=== PATIENT | female | born 1970 | race Caucasian/White ===

== ENCOUNTER 2024-08-11 14:40 | Outpatient (AMB) | payer OTHER, SELFPAY ==
--- NOTE | 2024-08-11 14:44 | A.OFFVIS_ITS ---
Vital Signs 08/11/24 14:46 Height 5 ft 5 in Weight 308 lb BMI 51.2 BP 128/78 Blood Pressure Location Lt brachial Position Sitting Pulse 61 Pulse Source Pulse Oximeter Pulse Oximetry (%) 100 Oxygen Delivery Method Room Air Intake Visit Reasons: ENP-SHIMON Intake Note: Patient presents for SHIMON Allergies shrimp Allergy (Verified 08/11/24 14:47) Unknown HPI Comments Details: 54 year old female is here for a sleep evaluation per PCP Dr. Cabezas in [place]. She bites her R. lower lip edge and will have and will have a fuzzy numb feeling on the lower left for about 3 months now, kind of like nerve irritation, not painful but annoying sensation. She uses her CPAP daily at night and sleeps about 5-6 hours a night, she used to average a solid 7-8 in the past. She is more tired during the day and she wakes up she is slow to awake, then lags all day. She tosses and turns all night long trying to fall asleep. Denies caffeine, no sodas. Denies taking melatonin, Denies Alcohol, smoking or MJ use. RLS : Has to move her legs in the chair when sitting down at the end of the day, they feel achy. Denies numbness, tingling,cramps or spasms, doesn't feel the need to move her legs in bed. Her diet is good, she eats really well just not successful at limiting items, an d doesn't hydrate well. LShe is motivated to lose weight and would like to speak with weight management. 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 Afib, she takes a baby aspirin daily and follows up with Optical Laboratory Technician at [facility] - [facility] - complete cardiac workup. COUNTS INCLUDE 234 BEDS AT [facility] Medical History Headache Arthritis A-fib Hypothyroidism Hypertension Surgical History Hx laparoscopic cholecystectomy Family History Paternal Grandmother Breast cancer Paternal Grandfather Lung cancer Mother Anxiety and depression Maternal Grandmother Cancer Father Arthritis Social History Alcohol intake: never Patient Tobacco Use Status: Never used Tobacco Physical Exam Vital Signs: Last Vital Signs Pulse 61 08/11/24 14:46 BP 128/78 08/11/24 14:46 Pulse Ox 100 08/11/24 14:46 Oxygen Delivery Method Room Air 08/11/24 14:46 BMI result Body Mass Index 51.2 Assessment & Plan Assessment & Plan (1) Fatigue due to sleep pattern disturbance: Code(s): R53.83 - Other fatigue; G47.9 - Sleep disorder, unspecified Category: Medical (2) Loud snoring: Code(s): R06.83 - Snoring Category: Medical (3) Gasping for breath: Code(s): R06.89 - Other abnormalities of breathing Category: Medical (4) Obesity (BMI 30-39.9): Code(s): E66.9 - Obesity, unspecified Category: Medical Plan Snoring and daytime fatigue will evaluate her with HST BMI is elevated 51, referral to weight management. Daytime Fatigue will R/O deficiencies with Labs: CBC / CMP B12/ Vit D/Folate Homocysteine and MMA Request notes from [place] for Labs, [facility] cardiology notes and [facility] [place] for sleep. F/u in 3 months Orders: Orders Vitamin D 25-OH Total Today G47.9 - Sleep disorder, unspecified, R53.83 - Other fatigue Methylmalonic Acid Today G47.9 - Sleep disorder, unspecified, R53.83 - Other fatigue Complete Blood Count no Diff Today G47.9 - Sleep disorder, unspecified, R53.83 - Other fatigue Hemoglobin A1c Today G47.9 - Sleep disorder, unspecified, R53.83 - Other fatigue RT home sleep study Today E66.9 - Obesity, unspecified, G47.9 - Sleep disorder, unspecified, R06.83 - Snoring, R06.89 - Other abnormalities of breathing, R53.83 - Other fatigue Vitamin B12 and Folate Today G47.9 - Sleep disorder, unspecified, R53.83 - Other fatigue Homocysteine Today G47.9 - Sleep disorder, unspecified, R53.83 - Other fatigue Comprehensive Met. Panel Today G47.9 - Sleep disorder, unspecified, R53.83 - Other fatigue Referrals Medical Weight Management Referral E66.01 - Morbid (severe) obesity due to excess calories Coding Level of Care Code New Pt Level 4 (03642) Diagnoses Fatigue due to sleep pattern disturbance R53.83; G47.9 Loud snoring R06.83 Gasping for breath R06.89 Obesity (BMI 30-39.9) E66.9 Time Spent (min) 30 Comment Evaluation Sleep Questionnaire Difficulty falling asleep: No Difficulty staying asleep?: No Number of arousals: 0 Snoring: Yes (before cpap) Witnessed apneas: No Gasping arousals: Yes Nocturia: No GERD: Yes Vivid dreams: Yes Acting out dreams: No Abnormal behavior in sleep: No Abnormal movements in sleep: No Morning headaches: Yes Excessive daytime sleepiness: Yes Daytime naps: No Restless legs: No Hallucinations: No Sleep paralysis: No Drop attacks: No Sleep Study: Yes (Kelsey ) CPAP: Yes
--- OUTSIDE RECORDS SUMMARY | 2024-08-11 14:44 | XMS_ITS | Clinical Summary ---
Author Organization [facility] Address [address] [place] [address] Phone Care Team Providers Care Diploma Pharmacy Technician Name Role Phone Heriberto Cabezas MD Primary Care Provider [phone] Allergies Active Allergy Reactions Criticality Noted Date Comments Other 12/26/2013 Seasonal-Other Reaction(s): Runny Nose/Rhinitis Watery eyes Shrimp 08/13/2021 Tingling of the tongue Medications Medication Sig Dispensed Refills Start Date End Date Status tiZANidine (ZANAFLEX) 4 mg tablet Take 1 tablet (4 mg total) by mouth every 8 (eight) hours if needed. 01/26/2024 Active multivit-min/iron/f olic acid/K (ADULTS MULTIVITAMIN ORAL) Take by mouth. Active cetirizine HCl (ZYRTEC ORAL) Take by mouth. Active losartan (Cozaar) 25 mg tablet Take 1 tablet (25 mg total) by mouth 1 (one) time each day. 90 each 1 05/23/2024 11/19/2024 Active metoprolol succinate (TOPROL-XL) 50 mg 24 hr tablet Take 1 tablet (50 mg total) by mouth 1 (one) time each day. 90 tablet 1 06/27/2024 Active levothyroxine (SYNTHROID, LEVOTHROID) 25 mcg tablet Take 1 tablet (25 mcg total) by mouth 1 (one) time each day. 90 tablet 08/01/2024 Active terbinafine (LamISIL) 250 mg tablet Take 1 tablet (250 mg total) by mouth 1 (one) time each day. Active levothyroxine (SYNTHROID, LEVOTHROID) 25 mcg tablet Take 1 tablet (25 mcg total) by mouth 1 (one) time each day. 01/26/2024 07/31/2024 Discontinued (Reorder) Encounters Date Type Department Care Team Description 06/27/2024 Telephone Adult Medicine [facility] [address] [place] [address] Heriberto Cabezas MD 05/23/2024 9:45 AM EST Office Visit Adult Medicine [facility] [address] [place] [address] Archana Lau PA Primary hypertension (Primary Dx); Acquired hypothyroidism; Hypercholesterolemia; Encounter for screening mammogram for malignant neoplasm of breast from Last 3 Months Immunizations Name Administration Dates Next Due Influenza trivalent, 0.5mL, preservative free (Fluarix; FluLaval; Fluzone) ages 6mo and older (Afluria) 3 years and older 05/08/2021,03/16/2013,04/29/2011,04/03 Influenza trivalent, MDCK, 0 .5mL, preservative free (Flucelvax) 6mo and older 05/23/2024 Influenza, Unspecified 04/11/2014 MMR, measles mumps and rubel la Live (Priorix; M-M-R II) 12mo and older 10/07/2020 Meningococcal MCV4P 02/28/2008 PPD Test 03/25/2011,01/13/2010,02/28/2008 Td Tetanus diptheria (Tdvax) 7yo and older 08/19/2018 Tdap Tetanus diptheria acell ular pertussis (Boostrix; Adacel) 7yo and older 02/28/2008 Surgical History Surgery Date Site/Laterality Comments WISDOM TOOTH EXTRACTION 2007 PROCEDURE: HISTORICAL WISDOM TEETH EXTRACTION; COMMENT: no complications with anesthesia /bleeding Medical History Medical History Date Comments Anemia, unspecified DX:Anemia, u nspecified Itch 11/13/2009 DX:Itch Flank pain 04/29/2010 DX:Flank pain; C OMMENT: [facility] Urology Paroxysmal atrial fibrillati on (CMS/HCC) 12/23/2015 DX:Paroxysmal atrial fibrill ation (HCC) Family History Medical History Relation Name Comments Arthritis Father shoulder, back Other cancer Maternal Grandmother unsure, ? leukemia Mental illness Mother anxiety/depre ssion Lung cancer Paternal Grandfather Breast cancer Paternal Grandmother Other: tachycardia Sister 1 s Breast cancer Neg Hx Relation Name Status Comments Brother Alive Father Alive Maternal Grandfather Alive Maternal Grandmother Mother Alive Paternal Grandfather Paternal Grandmother Sister 1 Sister 2 Alive Son 1 Alive Son 2 Alive Social History Tobacco Use Types Packs/Day Years Used Date Smoking Tobacco: Never Smokeless Tobacco: Never Alcohol Use Standard Drinks/Week Comments Yes 0 (1 standard drink = 0.6 oz pur e alcohol) Sex and Gender Information Value Date Recorded Sex Assigned at Not on file Gender Identity Not on file Sexual Orientation Not on file Job Start Date Occupation Industry Not on file Not on file Not on file Obstetrics History Last Filed Vital Signs Vital Sign Reading Time Taken Comments Blood Pressure 139/78 05/23/2024 9:41 AM EST Pulse 62 05/23/2024 9:41 AM EST Temperature 36.8 ??C (98.2 ??F) 05/23/2024 9:41 AM ES T Respiratory Rate - - Oxygen Saturation - - Inhaled Oxygen Concentration - - Weight 139 kg (306 lb) 05/23/2024 9:41 AM EST Height 165.1 cm (5' 5 ) 05/23/2024 9:41 AM EST Body Mass Index 50.92 05/23/2024 9:41 AM EST Plan of Treatment Health Maintenance Due Date Last Done Comments Breast Cancer Screening 1972 Hepatitis B Vaccines (1 of 3 - 19+ 3-dose series) 01/28/1991 Cervical Cancer Screening: Pap Smear 12/26/2016 12/26/2013, 12/26/2013 Zoster Vaccines (1 of 2) 01/28/2022 Depression Screening 06/20/2022 Social Influencers of Health Screening 06/20/2022 COVID-19 Vaccine (2023- season) 2024 09/20/2020, 08/23/2020 Hypertension/CHF/CAD Annual BMP Blood Test 01/27/2025 01/28/2024, 01/28/2024 DTaP,Tdap,and Td Vaccines (3 - Td or Tdap) 08/19/2028 08/19/2018, 02/28/2008 Cholesterol Screening (Lipid Panel) 01/27/2029 01/28/2024, 01/28/2024 Colorectal Cancer Screening: Colonoscopy 07/28/2033 07/28/2023 Meningococcal ACWY Vaccine Aged Out 02/28/2008 N o longer eligible based on patient's age to complete this topic HIV Screening Completed 09/09/2016 Hepatitis C Screening Completed 09/09/2016 MMR Vaccines Aged Out 10/07/2020 No longer eligi ble based on patient's age to complete this topic Influenza Vaccine Completed 05/23/2024, , 05/08/2021, Additional history exists HIB Vaccines Aged Out No longer eligi ble based on patient's age to complete this topic HPV Vaccines Aged Out No longer eligi ble based on patient's age to complete this topic Hepatitis A Vaccines Aged Out No long er eligible based on patient's age to complete this topic IPV Vaccines Aged Out No longer eligi ble based on patient's age to complete this topic Pneumococcal Vaccine: Pediatrics (0 to 5 Years) and At-Risk Patients (6 to 64 Years) Aged Out No longer eligible based on patient's age to complete this topic RSV Immunization Patients Under 20 months Aged Out No longer eligible based on patient's age to complete this topic Varicella Vaccines Aged Out No longer eligible based on patient's age to complete this topic Procedures Procedure Name Priority Date/Time Associated Diagnosis Comments ANNUAL BMP BLOOD TEST Routine 01/28/2024 LIPID PANEL Routine 01/28/2024 COLONOSCOPY Routine 07/28/2023 HEPATITIS C SCREENING Routine 09/09/2016 HIV SCREENING Routine 09/09/2016 HPV Routine 12/26/2013 from Last 3 Months or Most Recently Relevant to Health Maintenance Results * Annual BMP Blood Test (01/28/2024) Annual BMP Blood Test abstracted Historical Provider MD IZA MCKEON E * Lipid panel (01/28/2024) [facility] LDL/HDL Ratio 3 0 - 4 Triglycerides 85 0 - 150 mg/dL Cholesterol 152 0 - 200 mg/dL HDL 56 40 mg/dL LDL Cholesterol 79 0 - 100 mg/dL Blood Venous blood specimen / Unknown Historical Provider LAB BLOOD ORDERAB LES * Colonoscopy (07/28/2023) [facility] Colonoscopy no interpretation , abstracted Anatomical Region Laterality Modality Other Historical Provider [facility] * HIV Screening (09/09/2016) [facility] HIV Screening abstracted Historical Provider [facility] * Hepatitis C Screening (09/09/2016) [facility] Hepatitis C Screening abstracted Historical Provider [facility] * Cervical Cancer Screening: HPV (12/26/2013) [facility] Cervical Cancer Screening: HPV negative, abstracted Historical Provider [facility] from Last 3 Months or Most Recently Relevant to Health Maintenance Care Teams Diploma Pharmacy Technician Relationship Specialty Start Date End Date Heriberto Cabezas MD [address] [place] [address] NANDO Villagmoez [id number] PCP - General Internal Medicine 12/24/20
--- OUTSIDE RECORDS SUMMARY | 2024-08-11 14:44 | XMS_ITS | Encounter Summary ---
Author Organization [facility] Address [address] [place] [address] Care Team Providers Care Proofer Black And White Name Role Phone Heriberto Cabezas MD Primary Care Provider [phone] Encounter Details Date Type Department Care Team ([facility] st Contact Info) Description 06/27/2024 Telephone Adult Medicine [facility] [address] [facility] [place] [id number] Heriberto Cabezas MD [address] [place] [address] Social History Tobacco Use Types Packs/Day Years [...] file Not on file Not on file documented as of this encounter Plan of Treatment Not on file documented as of this encounter Visit Diagnoses Not on filedocumented in this encounter Care Teams Proofer Black And White Relationship Specialty Start Date End Date Heriberto Cabezas MD [address] [place] [address] PCP - General Internal Medicine 12/24/20 documented as of this encounter
[2024-08-11 14:46] VITALS: BP 128/78; PULSE 61; O2SAT 100; BMI 51.2
== END 2024-08-11 15:31 | disposition home or self-care (01) ==
PROVIDERS: Visit Provider Physician Assistant Medical
DX: R53.83 Other fatigue (principal); G47.9 Sleep disorder, unspecified; R06.83 Snoring; R06.89 Other abnormalities of breathing; E66.9 Obesity, unspecified
CPT/HCPCS: 99204

== ENCOUNTER → 2024-10-18 14:58 | Outpatient (REF) | payer OTHER, SELFPAY ==
--- OUTSIDE RECORDS SUMMARY | 2024-10-18 17:09 | XMS_ITS | Clinical Summary ---
Author Organization [facility] Address [address] [place] [address] Phone Care Team Providers Care Felt Finisher Name Role Phone Heriberto Cabezas MD Primary Care Provider [phone] Allergies Active Allergy Reactions Criticality Noted Date Comments Other 12/26/2013 Seasonal-Other Reaction(s): Runny Nose/Rhinitis Watery eyes Shrimp 08/13/2021 Tingling of the tongue Medications tiZANidine (ZANAFLEX) 4 mg tablet Take 1 tablet (4 mg total) by mouth every 8 (eight) hours if needed. 01/26/2024 Active multivit-min/iron /folic acid/K (ADULTS MULTIVITAMIN ORAL) Take by mouth. Active cetirizine HCl (ZYRTEC ORAL) Take by mouth. Active losartan (Cozaar) 25 mg tablet Take 1 tablet (25 mg total) by mouth 1 (one) time each day. 90 each 1 05/23/2024 11/20/19 25 Active metoprolol succinate (TOPROL-XL) 50 mg 24 [...] mouth 1 (one) time each day. Active Immunizations Name Administration Dates Next Due Influenza [...] Flank pain 04/29/2010 DX:Flank pain; C OMMENT: [facility] Urology Paroxysmal atrial fibrillati on ([facility]/HCC) 12/23/2015 DX:Paroxysmal atrial fibrill ation (HCC) Family [...] drink = 0.6 oz pur e alcohol) Comments No Sex and Gender Information Value Date Recorded Sex Assigned at Not on file Legal Sex Female 11:59 PM EST Gender Identity Not on file Sexual Orientation Not on file Obstetrics History Last Filed [...] Cancer Screening: Pap Smear 12/26/2016 12/26/2013, 12/26/2013 Pneumococcal Vaccine: 50+ Years (1 of 1 - PCV) 01/28/2022 Zoster Vaccines (1 of 2) 01/28/2022 Depression Screening 06/20/2022 Social Influencers of Health Screening 06/20/2022 COVID-19 Vaccine ( season) 2024 09/20/2020, 08/23/2020 Hypertension/CHF/CAD Annual BMP [...] on patient's age to complete this topic Meningococcal B Vaccine Aged Out No l onger eligible based on patient's age to complete [...] Annual BMP Blood Test abstracted Historical Provider HEALTH MAINTENANCE Final Result * Lipid panel (01/28/2024) LDL/HDL Ratio 3 0 - 4 Triglycerides 85 0 - 150 mg/dL Cholesterol 152 0 - 200 mg/dL HDL 56 >=40 mg/dL LDL Cholesterol 79 0 - 100 mg/dL Blood Venous blood specimen / Unknown us Historical Provider LAB BLOOD ORDERABLES Denisha l Result * Colonoscopy (07/28/2023) Pathologist [facility] Colonoscopy no interpretation , abstracted Anatomical Region Laterality Modality Other Historical Provider HEALTH MAINTENANCE Final Result * HIV Screening (09/09/2016) [facility] HIV Screening abstracted [facility] Provider HEALTH MAINTENANCE Final Result * Hepatitis C Screening (09/09/2016) Pathologist [facility] Hepatitis C Screening abstracted [facility] Provider HEALTH MAINTENANCE Final Result * Cervical Cancer Screening: HPV (12/26/2013) Pathologist [facility] Cervical Cancer Screening: HPV negative, abstracted [facility] Provider HEALTH MAINTENANCE Final Result from Last 3 Months or Most Recently Relevant to Health Maintenance Insurance [employer] [facility] Care Teams Felt Finisher Relationship Specialty Start Date End Date Heriberto Cabezas MD [address] [place] [id number] PCP - General Internal Medicine 12/24/20
== END ==
LOC: HO.SL 14:58
PROVIDERS: PCP Pediatrics; Visit Provider Physician Assistant Medical
DX: G47.33 Obstructive sleep apnea (adult) (pediatric) (principal); R53.83 Other fatigue; R06.83 Snoring; R06.89 Other abnormalities of breathing; E66.9 Obesity, unspecified
CPT/HCPCS: 95806

== ENCOUNTER → 2024-10-18 15:37 | Outpatient (BNV) | payer OTHER, SELFPAY | PROVIDERS: PCP Pediatrics; Visit Provider Psychiatry & Neurology Neurology | DX: G47.33 Obstructive sleep apnea (adult) (pediatric) (principal) | CPT/HCPCS: 95806 ==

== ENCOUNTER 2024-11-08 14:25 | Outpatient (AMB) | payer OTHER, SELFPAY ==
--- NOTE | 2024-11-08 14:30 | MHC.OFFVIS ---
Vital Signs 11/08/24 14:31 Height 5 ft 5 in Weight 316 lb BMI 52.6 BP 126/72 Blood Pressure Location Lt brachial Position Sitting Pulse 70 Pulse Source Pulse Oximeter Pulse Oximetry (%) 99 Oxygen Delivery Method Room Air Intake Visit Reasons: Follow up 3mo, SHIMON (obstructive sleep apnea) Intake Note: Patient presents follow up sleep. HST in chart(AHI 25/hr, JOSH 86%. Trial AutoPAP 5/20cm) WM seen 08/31/24. No labs. Allergies Seasonal Allergies Allergy (Mild, Verified 11/08/24 14:35) Runny Nose shrimp Allergy (Verified 11/08/24 14:35) Unknown HPI Comments Details: 54 year old female is here for SHIMON per PCP Dr. Cabezas in [place]. HST c/w SHIMON AHI 25/hr and oxygen Nadirs to 86%. She uses her CPAP daily at night and sleeps about 5-6 hours a night, she used to average a solid 7-8 in the past. She is more tired now and notices her heart racing, she had a holter monitor test, and PACs were noted, however she was in NSR, and is being followed by her offshoring manager. She says her labs are normal and she takes her Levothyroxine daily. She tosses and turns all night long trying to fall asleep. Denies headaches, denies using caffeine, drinking sodas or use of stimulants. Denies Alcohol, smoking, vaping or MJ use. RLS : Has to move her legs in the chair when sitting down at the end of the day, they feel uncomfortable. Magnesium 400mg daily has improved the discomfort in legs at night. Today she denies numbness, tingling, cramps or spasms, doesn't feel the need to move her legs at night. 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 She is motivated to lose weight and Ozempic was not approved by insurance. 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 She says she still feels the arrythmias come and go, and it is worse when she is dehydrated. She takes a baby aspirin daily. She washes her mask, changes the filters and hoses as needed and fills the reservoir with water. [facility] Medical History Headache Arthritis A-fib Hypothyroidism Hypertension Surgical History Hx laparoscopic cholecystectomy Family History Paternal Grandmother Breast cancer Paternal Grandfather Lung cancer Mother Anxiety and depression Maternal Grandmother Cancer Father Arthritis Social History Alcohol intake: current Alcohol intake frequency: holidays/special occasions only Patient Tobacco Use Status: Never used Tobacco Physical Exam Vital Signs: Last Vital Signs Pulse 70 11/08/24 14:31 BP 126/72 11/08/24 14:31 Pulse Ox 99 11/08/24 14:31 Oxygen Delivery Method Room Air 11/08/24 14:31 BMI result Body Mass Index 52.6 Const General: cooperative, comfortable and no acute distress Nutritional Appearance: obese Orientation/consciousness: patient oriented x3 HEENT Face and sinus: Yes face symmetric Teeth and gingiva: other (mallampti score 3) Eyes Pupils: Equal, round and reactive pupils present Resp Effort & Inspection: normal respiratory effort and able to speak in complete sentences Neuro General: patient oriented x3 and moves all extremities Cranial nerves: Yes Facial sensation intact/muscles of mastication intact, Yes Equal, round and reactive pupils present, Yes Normal accommodation reflex present, Yes Normal facial strength present, Yes Midline tongue present, Yes Ability to bilaterally rotate head present and Yes Ability to bilaterally elevate shoulders present Gait exam (Neuro): Normal gait present Motor exam (neuro): 5/5 motor strength present throughout and Normal motor muscle tone present throughout Coordination: [id number] test normal Results Reviewed Results Reviewed: HST c/w SHIMON AHI 25/hr and oxygen Nadirs to 86%. 09/05/2024 -[facility] Holter Monitor recording diary: 1. rare pacs 2. NSR 3. no long pauses 4. diary returned to patient. Assessment & Plan Assessment & Plan (1) Leg cramps, sleep related: Code(s): G47.62 - Sleep related leg cramps Category: Medical (2) Fatigue due to sleep pattern disturbance: Code(s): R53.83 - Other fatigue; G47.9 - Sleep disorder, unspecified Category: Medical (3) Obesity (BMI 30-39.9): Code(s): E66.9 - Obesity, unspecified Category: Medical (4) Obstructive sleep apnea syndrome: Code(s): G47.33 - Obstructive sleep apnea (adult) (pediatric) Plan SHIMON AHI is 25 and O2 Nadirs to 86%, started cpap at 5-20cm H20 will f/u for compliance. BMI is elevated 5, 2.6 she is managing with diet and lifestyle changes, awaiting Ozempic or Zepbound. Fatigue labs are normal will request them from her PCP's office, TSH is normal. ? deficiencies with Labs: CBC / CMP B12/ Vit D/Folate Homocysteine and MMA Request notes from [place] for Labs, [facility] cardiology notes and [facility] for sleep. Leg crams will monitor for RLS magnilife topically and magnesium 200mg PO increase to 400mg PO, may hold for loose stools. F/u in 3 months for compliance. Medications: New magnesium 200 mg PO DAILY 30 days 30 tabs 2RF leg cramps MDD 200mg G47.62 - Sleep related leg cramps Patient Instructions: Sleep Hygiene provided: set a scheduled bedtime and wake time to help regulate the circadian rhythm and balance the release of pituitary hormones. Sleep in a dark room, temperatures below 68 degrees, and no devices n bed. Limit caffeinated products 6 hours prior to bed, and limit fluids 2-4 hours prior to bed. Gentle night yoga, diffusing essential oils, and playing soft music can be relaxing. Monitor for RLS and continue taking Magnesium 400mg PO daily, hold for loose stools. F/u with Cardiology as needed for PACs, mindful meditation and alleviating stresss can help with anxiety. Coding Level of Care Code Est Pt Level 4 (27608) Diagnoses Leg cramps, sleep related G47.62 Fatigue due to sleep pattern disturbance R53.83; G47.9 Obesity (BMI 30-39.9) E66.9 Obstructive sleep apnea syndrome G47.33 Time Spent (min) 30 Comment f/u for compliance of SHIMON
[2024-11-08 14:31] VITALS: BP 126/72; PULSE 70; O2SAT 99; BMI 52.6
--- OUTSIDE RECORDS SUMMARY | 2024-11-08 15:43 | XMS_ITS | Clinical Summary ---
Author Organization [facility] Address [address] [place] [phone] Phone Care Team Providers Care Broker Assistant Name Role Phone Heriberto Cabezas MD Primary Care Provider [phone] Allergies Active Allergy Reactions Criticality Noted Date Comments Other 12/26/2013 Seasonal-Other Reaction(s): Runny Nose/Rhinitis Watery eyes Shrimp 08/13/2021 Tingling of the tongue Medications tiZANidine (ZANAFLEX) 4 mg tablet Take 1 tablet (4 mg total) by mouth every 8 (eight) hours if needed. 4 Active multivit-min/iro n/folic acid/K (ADULTS MULTIVITAMIN ORAL) Take by mouth. Active cetirizine HCl (ZYRTEC ORAL) Take by mouth. Active losartan (Cozaar) 25 mg tablet Take 1 tablet (25 mg total) by mouth 1 (one) time each day. 90 each 1 4 11/20/19 25 Active metoprolol succinate (TOPROL-XL) 50 mg 24 hr tablet Take 1 tablet (50 mg total) by mouth 1 (one) time each day. 90 tablet 1 4 Active terbinafine (LamISIL) 250 mg tablet Take 1 tablet (250 mg total) by mouth 1 (one) time each day. Active levothyroxine (SYNTHROID, LEVOTHROID) 25 mcg tablet Take 1 tablet (25 mcg total) by mouth 1 (one) time each day. 90 tablet 5 Active levothyroxine (SYNTHROID, LEVOTHROID) 25 mcg tablet Take 1 tablet (25 mcg total) by mouth 1 (one) time each day. 90 tablet 5 11/02/19 25 Discontinue d(Reorder) nitrofurantoin, macrocrystal-mon ohydrate, (MACROBID) 100 mg capsule Take 1 capsule (100 mg total) by mouth 2 (two) times a day for 5 days. 10 each 5 10/31/19 25 Encounters Date Type Department Care Team Description 11/08/2024 Telephone Adult Medicine [facility] [address] [place] [address] Heriberto Cabezas MD UTI 10/25/2024 9:00 AM EDT Office Visit Walk-In Clinic - [address] [phone] Jalyn Gaffney NP Dysuria (Primary Dx); Acute cystitis without hematuria 10/23/2024 Telephone Adult Medicine - [place] [address] [place] [address] Heriberto Cabezas MD UTI from Last 3 Months Immunizations Name Administration [...] Flank pain 04/29/2010 DX:Flank pain; C OMMENT: [facility] Paroxysmal atrial fibrillati on ([facility]/HCC V24, CMS/HCC V28) 12/23/2015 DX:Paroxysmal atrial fibril lation (HCC) Family History Medical History Relation Name [...] drink = 0.6 oz pur e alcohol) Housing Instability Answer Date Recorde d Are you worried that in the next 2 months you may not have stable housing? No 10/24/2024 Food Access & Nutrition Answer Date Rec orded Do you have access to a vari ety of food including fruits and vegetables? Yes 10/24/2024 Access to Healthcare Answer Date Record ed Within the last 3 months, ho w many times did you visit the emergency department for your medical care? 0 10/24/2024 Health Literacy Answer Date Recorded How often do you need to hav e someone help you when you read instructions, pamphlets, or other written material from your doctor or pharmacy? Never 10/24/2024 Caregiver: How often do you need to have someone help you when you read instructions, pamphlets, or other written material from your doctor or pharmacy? Not on file 10/24/2024 Financial Risk Answer Date Recorded How hard is it for you to pa y for the very basics like food, housing, medical care, and air conditioning / heating? Not very hard 10/24/2024 Transportation Answer Date Recorded Has the lack of transportati on kept you from meetings, work, or from getting things needed for daily living? No Has the lack of transportati on kept you from medical appointments or from getting medications? No 10/24/2024 Social Isolation Answer Date Recorded How often do you feel lonely or isolated from th ose around you? Never 10/24/2024 Food Risk Answer Date Recorded Within the past 12 months we worried whether our food would run out before we got money to buy more. Never true 10/24/2024 Within the past 12 months th e food we bought just didn't last and we didn't have money to get more. Never true 10/24/2024 Dependent Care Answer Date Recorded Do you need help finding or paying for care for your loved ones. For example, early childhood teacher assistant or elderly care for an older adult? No 10/24/2024 Education Answer Date Recorded Do you think completing more education or training, like finishing a GED, going to college, or learning a trade, would be helpful for you? No 10/24/2024 Employment and Income Answer Date Recor ded During the last four weeks, have you been actively looking for work? No 10/24/2024 Living Situation Answer Date Recorded What is your living situation? 0 10/24/2024 Comments No Sex and Gender Information Value Date Recorded Sex Assigned at Not on file Legal Sex Female 11:59 PM EST Gender Identity Not on file Sexual Orientation Not on file Obstetrics History Last Filed Vital Signs Vital Sign Reading Time Taken Comments Blood Pressure 159/75 10/25/2024 8:59 AM EDT Pulse 65 10/25/2024 8:59 AM EDT Temperature 36.3 ??C (97.3 ??F) 10/25/2024 8:59 AM ED T Respiratory Rate - - Oxygen Saturation 98% 10/25/2024 8:59 AM EDT Inhaled Oxygen Concentration - - Weight 139 kg (306 lb) 05/23/2024 9:41 AM EST Height 165.1 cm (5' 5 ) 05/23/2024 9:41 AM EST Body Mass Index 50.92 05/23/2024 9:41 AM EST Plan of Treatment Upcoming Encounters Date Type Department Care Team (Late st Contact Info) Description 11/09/2024 9:00 AM EDT Office Visit Adult Medicine [address] [phone] Charissa Elizondo, MARIA C [address] [place] [address] Health Maintenance Due Date Last Done Comments Breast Cancer Screening 1970 Hepatitis B Vaccines (1 of 3 - 19+ 3-dose series) 01/28/1991 Cervical Cancer Screening: Pap Smear 12/26/2016 12/26/2013, 12/26/2013 Pneumococcal Vaccine: 50+ Years (1 of 1 - PCV) 01/28/2022 Zoster Vaccines (1 of 2) 01/28/2022 Depression Screening 06/20/2022 COVID-19 Vaccine ( season) 2024 09/20/2020, 08/23/2020 Hypertension/CHF/CAD Annual BMP Blood Test 01/27/2025 01/28/2024, 01/28/2024 Social Influencers of Health Screening 10/24/2025 10/24/2024 DTaP,Tdap,and Td Vaccines (3 - Td or [...] Procedure Name Priority Date/Time Associated Diagnosis Comments POC URINE NON-AUTO W/O MICRO Routine 10/25/2024 11:08 AM EDT Dysuria CULTURE URINE Routine 10/25/2024 9:30 AM EDT Dysuria ANNUAL BMP BLOOD TEST Routine 01/28/2024 LIPID PANEL Routine 01/28/2024 COLONOSCOPY Routine 07/28/2023 HEPATITIS C SCREENING Routine 09/09/2016 HIV SCREENING Routine 09/09/2016 HPV Routine 12/26/2013 from Last 3 Months or Most Recently Relevant to Health Maintenance Results * (ABNORMAL) POC Urine Non-Auto W/O Micro (10/25/2024 11:08 AM EDT) GLUCOSE POC Negative Negative, Trace mg/dL Leukocytes UA POC 2+(A) Negative Nitrite UA POC Positive Urobilinogen UA POC >=8.0 E.U./dL mg/dL Protein UA POC Trace(A) Negative PH UA POC 6 Blood UA POC 1+(A) Negative SPECIFIC GRAVITY POC 1.010 Ketones UA POC Negative Negative Bilirubin UA POC Negative Negative Appearance UA POC Cloudy Color UA POC Yellow Urine Urine specimen obtained by clean catch procedure / Unknown 10/25/2024 11:08 AM EDT Jalyn Gaffney NP POINT OF CARE TEST ENTER/EDIT ORDERABLES Final Result * (ABNORMAL) Culture urine (10/25/2024 9:30 AM EDT) Pathologist [facility] Culture, Urine >100,000 CFU/mL Escherichia coli(A) COCO 10/28/2024 11:11 AM EDT [facility] Comment: This is an edited result. Previous organism was Gram negative bacilli on 10/27/2024 at 1151 EDT. Urine Urine specimen obtained by clean catch procedure / Unknown Non-blood Collection / Unknown 10/25/2024 9:30 AM EDT 10/26/2024 9:02 AM EDT Narrative Organism Antibiotic Method Susceptibility Escherichia coli Amoxicillin/Clavulanate COCO 16 ug/ml: Intermediate Escherichia coli Ampicillin/Sulbactam COCO >=32 ug/ml: Resistant Escherichia coli Piperacillin/Tazobactam COCO <=4 ug/ml: Susceptible Escherichia coli Cefazolin (Urine) COCO 8 ug/ml: Susceptible Escherichia coli Cefoxitin COCO <=4 ug/ml: Susceptible Escherichia coli Ceftazidime COCO <=0.5 ug/ml: Susceptible Escherichia coli Ceftriaxone COCO <=0.25 ug/ml: Susceptible Escherichia coli Cefepime COCO <=0.12 ug/ml: Susceptible Escherichia coli Meropenem COCO <=0.25 ug/ml: Susceptible Escherichia coli Amikacin COCO 4 ug/ml: Susceptible Escherichia coli Gentamicin COCO <=1 ug/ml: Susceptible Escherichia coli Ciprofloxacin COCO 1 ug/ml: Resistant Escherichia coli Levofloxacin COCO 1 ug/ml: Intermediate Escherichia coli Nitrofurantoin COCO <=16 ug/ml: Susceptible Escherichia coli Trimethoprim/Sulfamethoxazole COCO >=320 ug/ml: Resistant Jalyn Gaffney NP LAB MICROBIOLOGY - GENERAL ORD ERABLES Final Result [facility] [address] [place] [address], [place] [phone] * Annual BMP Blood Test (01/28/2024) [facility] Annual [facility] Blood Test abstracted Historical Provider HEALTH MAINTENANCE Final Result * [facility]id [facility] LDL/HDL Ratio 3 0 - 4 Triglycerides 85 0 - 150 mg/dL Cholesterol 152 0 - 200 mg/dL HDL 56 >=40 mg/dL LDL Cholesterol 79 0 - 100 mg/dL Blood Venous blood specimen / Unknown [facility] Provider LAB BLOOD ORDERABLES Denisha l Result * Colonoscopy (07/28/2023) [facility] Colonoscopy no interpretation , abstracted Anatomical Region Laterality Modality Other [facility] Provider HEALTH MAINTENANCE Final Result * HIV Screening (09/09/2016) [facility] HIV Screening abstracted [facility] Provider HEALTH MAINTENANCE Final Result * Hepatitis C Screening (09/09/2016) [facility] Hepatitis C Screening abstracted [facility] Provider HEALTH MAINTENANCE Final Result * Cervical Cancer Screening: HPV (12/26/2013) [facility] Cervical Cancer Screening: HPV negative, abstracted [facility] Provider HEALTH MAINTENANCE Final Result from Last 3 Months or Most Recently Relevant to Health Maintenance Insurance [employer] [facility] Care Teams Broker Assistant Relationship Specialty Start Date End Date Heriberto Cabezas MD [address] [place] [address] NANDO Guzmán [phone] PCP - General Internal Medicine 12/24/20
--- OUTSIDE RECORDS SUMMARY | 2024-11-08 15:43 | XMS_ITS | Encounter Summary ---
Author Organization [facility] Address [address] [place] [address] Care Team Providers Care Lawn Caretaker Name Role Phone Heriberto Cabezas MD Primary Care Provider Reason for Visit * Reason Onset Date Comments UTI 11/08/2024 Encounter Details Date Type Department Care Team ([facility] st Contact Info) Description 11/08/2024 Telephone Adult Medicine [facility] [address] [place] [phone] Heriberto Cabezas MD [address] [place] [address] UTI Social History Tobacco Use Types Packs/Day Years [...] care for your loved ones. For example, children's lunchroom supervisor or elderly care for an older adult? [...] on file Sexual Orientation Not on file documented as of this encounter Progress Notes * Julio Cesar Brown RN - 11/08/2024 10:44 AM EDT Pt was seen in our urgent care on 10/25 for a uti , pt was prescribed Macrobid , pt has finished her medication and sx are back , appointment scheduled * Sterling Pineda - 11/08/2024 10:29 AM EDT Patient call requires triage: Symptoms patient is presenting: Pt calling with continue UTI symptoms. Was given an antibiotic of nitrofurantoin on 10/25/24 which worked initially but symptoms came back a day later. Pt is having urgency and frequency. How long has patient had these symptoms?: 1 week For ALL patients calling to schedule any appointment (routine, sick visit, follow up, consult, etc.) in the outpatient setting please ask the following questions: Do you have fever of higher than 101, sore throat with difficulty swallowing or severe shortness ofbreath? If YES to any of these above symptoms, send a message to triage and do not book. Red dot. If no, an audio or video visit should be booked. Have you had close contact with someone with Coronavirus in the last 14 days? Have you traveled abroad? Have you traveled recently to another state outside of [place], [place], [place], [place], [place], [place], [place]? o If yes, did you quarantine for 14 days or have a negative covid test? If yes to any of the above, patient is not to be scheduled in office until after 14 day quarantine or negative covid test. If pain or injury related was it due to an accident at work or from a motor vehicle accident? If yes, date of accident/Injury: If yes, gather 3rd libertarian insurance information Third Republican Information: PCP: Heriberto Cabezas MD Payor: [employer] [place] / Plan: [employer] [place] / Product Type: *No Product type* / documented in this encounter Plan of Treatment Upcoming Encounters Date Type Department Care Team (Late st Contact Info) Description 11/09/2024 9:00 AM EDT Office Visit Adult Medicine - [place] [address] [place] [phone] Charissa Elizondo PA [address] [place] [address] documented as of this encounter Visit Diagnoses Not on filedocumented in this encounter Care Teams Lawn Caretaker Relationship Specialty Start Date End Date Heriberto Cabezas MD [address] [place] [id number] PCP - General Internal Medicine 12/24/20 documented as of this encounter
== END 2024-11-08 15:00 | disposition home or self-care (01) ==
LOC: HO.HSMS 14:26
PROVIDERS: Visit Provider Physician Assistant Medical
DX: G47.62 Sleep related leg cramps (principal); R53.83 Other fatigue; G47.9 Sleep disorder, unspecified; E66.9 Obesity, unspecified; G47.33 Obstructive sleep apnea (adult) (pediatric)
CPT/HCPCS: 99214